=== PATIENT | female | born 1975 | race Caucasian/White ===

== ENCOUNTER → 2017-04-10 | Outpatient (CLI) | payer BC, OTHER ==
--- NOTE | 2017-04-10 12:34 | RAD ---
Indication pain. No history of injury. AP oblique and lateral views of the lumbar spine were obtained as well as a coned view targeted to the lumbosacral junction. Note is made of a prior examination 02/20/2013. Vertebral height alignment and disc spaces are unremarkable. No acute finding is seen. There are no significant degenerative changes on plain films. IUD is noted. IMPRESSION: Unremarkable plain films of the lumbar spine
== END | disposition home or self-care (01) ==
LOC: DXRADRC 12:04
PROVIDERS: ATTEND Nurse Practitioner Family
DX: M54.5 Low back pain (principal)
CPT/HCPCS: 72110

== ENCOUNTER → 2020-06-15 | Outpatient (CLI) | payer OTHER ==
--- NOTE | 2020-06-15 10:13 | RAD ---
Examination: Ultrasound left lower back HISTORY: History of lump in the left lower back COMPARISON: None available. Findings/ impression: There is a 9 mm hyperechoic nodule identified in the left lower back without significant vascular flow within probably a lipoma. Electronically signed by: Luigi Kirby MD (06/15/2020 10:11 AM) [id number]
== END | disposition home or self-care (01) ==
LOC: US 08:35
PROVIDERS: ATTEND Physician Assistant Medical
DX: R22.42 Localized swelling, mass and lump, left lower limb (principal)
CPT/HCPCS: 76881

== ENCOUNTER → 2021-07-04 | Outpatient (CLI) | payer OTHER ==
--- NOTE | 2021-07-04 09:29 | RAD ---
EXAM: Abdomen and pelvis CT without intravenous contrast. HISTORY: Flank pain. TECHNIQUE: Computed tomographic images of the abdomen and pelvis were obtained without contrast. Mult iplanar reformatting was performed. *One or more of the following individualized dose reduction techniques were utilized for this examina tion: 1. Automated exposure control. 2. Adjustment of the mA and/or kV according to patient size. 3. Use of iterative reconstruction technique. COMPARISON: None. FINDINGS: Evaluation of the lower thorax demonstrates calcified right hilar and infrahilar granulomas . There is no infiltrate, pleural effusion or pneumothorax. The heart is normal in size. There is rolly pected hepatic steatosis. No focal hepatic lesion is seen. The gallbladder is surgically absent. The pancreas is unremarkable. The spleen is upper normal in size, likely appropriate for patient body hab itus. The stomach and adrenal glands are unremarkable. There is no hydronephrosis. There is a 1 mm nonobstructing stone within the mid zone of the left kidn ey. No solid or cystic renal lesion is seen on this noncontrast exam. There is no appendicitis. There is mild segmental wall thickening involving the transverse and ascending colon likely due to perista lsis. There is no surrounding inflammatory stranding to suggest acute colitis. There is distal coloni c diverticulosis. There is mild fatty stranding adjacent to a diverticulum within the mid sigmoid col on, suggesting mild diverticulitis. The imaging appearance does not favor epiploic appendagitis. There is an IUD within the endometrial cavity. The ovaries are unremarkable. The bladder is unremarka ble. The aorta is normal in caliber. No pathologically enlarged lymph node is seen. There is no suspi cious or acute osseous finding. IMPRESSION: 1. Slight fatty stranding adjacent to a diverticulum within the mid sigmoid colon, suggesting mild ac gilma diverticulitis. The superimposed on distal colonic diverticulosis. 2. Suspected hepatic steatosis. 3. Punctate nonobstructing left renal stone. Electronically signed by: Ann Oneil MD (07/04/2021 9:26 AM) [id number]
== END ==
LOC: CT 07:54
PROVIDERS: ATTEND Physician Assistant Medical
DX: N20.0 Calculus of kidney (principal); N23 Unspecified renal colic; K57.30 Diverticulosis of large intestine without perforation or abscess without bleeding
CPT/HCPCS: 74176